=== PATIENT | male | born 1975 | race Caucasian/White ===

== ENCOUNTER 2020-05-01 20:00 | Outpatient (CLI) | payer OTHER, SELFPAY | END 2020-05-01 20:01 | disposition home or self-care (01) | LOC: SLEEP 05-02 08:39 | PROVIDERS: Family Provider Nurse Practitioner Family; PCP Nurse Practitioner Family; Visit Provider Nurse Practitioner Family | DX: G47.30 Sleep apnea, unspecified (principal) | CPT/HCPCS: 95810 ==